=== PATIENT | female | born 1945 | race Caucasian/White ===

== ENCOUNTER 2017-04-22 03:31 | Inpatient (IN) | payer MEDICARE, OTHER ==
[2017-04-22] MEDS ORDERED: CRESTOR10 M1 PO (03:44)
[2017-04-22] MEDS ORDERED: ELIQUIS5 M1 PO (03:44)
[2017-04-22] MEDS ORDERED: HYDRALAZINE HCL25 M1 PO (03:44)
[2017-04-22] MEDS ORDERED: EFFEXOR XR75 M1 PO (03:45)
[2017-04-22] MEDS ORDERED: INDERAL XL80 MG PO (03:45)
[2017-04-22] MEDS ORDERED: AMIODARONE HCL200 M1 PO (03:56)
[2017-04-22 04:11] LABS: BASO % 0.2 % (0-2); EOS % 0.1 % (0-7); HGB-HEMOGLOBIN 7.3 gm/dl (12.0-15.5); IMMATURE GRANULOCYTES ABSOLUTE 0.04 tho/cmm (0-0.03); IMMATURE GRANULOCYTES PERCENT 0.4 % (0-0.3); LYMPH % 20.4 % (20-45); LYMPH ABSOLUTE COUNT 2.2 tho/cmm (0.8-4.5); MCH (MEAN CORPUSCULAR HGB) 31.7 pg (28.0-32.0); MCV (MEAN CELL VOLUME) 96.1 fl (82.0-96.0); MEAN PLATELET VOLUME 9.1 cmc (9.4-12.4); MONO % 8.1 % (0-12); MONOCYTE ABSOLUTE COUNT 0.9 tho/cmm (0.0-1.2); NEUTROPHIL ABSOLUTE COUNT 7.6 tho/cmm (1.6-8.0); NEUTROPHIL-AUTOMATED 7.6 tho/cmm (1.6-8.0); NEUTROPHILS % 70.8 % (40-80); PLATELET COUNT 173 tho/cmm (150-450); RED CELL DISTRIBUTION WIDTH 13.8 % (12.4-16.4); WHITE BLOOD COUNT 10.8 tho/cmm (4.0-10.0)
[2017-04-22 04:17] LABS: INR 1.5 INR (0.9-1.1); PROTHROMBIN TIME 18.2 SECONDS (9.0-13.6)
[2017-04-22 04:19] LABS: HCT-HEMATOCRIT 22.1 % (34.0-49.0)
[2017-04-22 04:32] LABS: ALBUMIN 2.9 g/dl (3.5-5.0); ALCOHOL (ETOH) <10 mg/dl (<10); ALKALINE PHOSPHATASE 54 U/L (33-138); ALT/SGPT 23 U/L (12-78); ANION GAP 17 mmol/L (0-20); AST/SGOT 17 U/L (10-40); BILIRUBIN,TOTAL 0.3 mg/dl (0-1.5); BLOOD UREA NITROGEN 62 mg/dl (6-24); CALCIUM 8.1 mg/dl (8.5-10.5); CARBON DIOXIDE-VENOUS 20 mmol/L (22-32); CHLORIDE 106 mmol/l (96-110); CREATININE 1.07 mg/dl (0.50-1.10); GLUCOSE 183 mg/dL (70-110); LIPASE 164 U/L (73-393); POTASSIUM 4.6 mmol/L (3.7-5.1); SODIUM 138 mmol/L (135-145); eGFR VALUE FOR BLACK 60 mL/Min
[2017-04-22 04:37] LABS: TSH-THYROID STIMULATING HORM. 4.83 uIU/ml (0.40-3.80)
[2017-04-22 04:43] LABS: PROCALCITONIN 0.08 ng/ml (0.05-0.09)
[2017-04-22 09:51] LABS: HGB-HEMOGLOBIN 9.2 gm/dl (12.0-15.5)
[2017-04-23 03:14] LABS: PARTIAL THROMBOPLASTIN TIME 24 SECONDS (22-36)
[2017-04-23 03:18] LABS: ANION GAP 10 mmol/L (0-20); BLOOD UREA NITROGEN 21 mg/dl (6-24); CALCIUM 7.5 mg/dl (8.5-10.5); CARBON DIOXIDE-VENOUS 23 mmol/L (22-32); CHLORIDE 115 mmol/l (96-110); CREATININE 0.56 mg/dl (0.50-1.10); GLUCOSE 110 mg/dL (70-110); SODIUM 145 mmol/L (135-145); eGFR VALUE FOR BLACK >90 mL/Min
[2017-04-23 03:33] LABS: POTASSIUM 3.3 mmol/L (3.7-5.1)
[2017-04-23 03:54] LABS: BASO % 0.2 % (0-2); EOS % 0.4 % (0-7); IMMATURE GRANULOCYTES ABSOLUTE 0.09 tho/cmm (0-0.03); IMMATURE GRANULOCYTES PERCENT 0.8 % (0-0.3); LYMPH % 23.1 % (20-45); LYMPH ABSOLUTE COUNT 2.5 tho/cmm (0.8-4.5); MCH (MEAN CORPUSCULAR HGB) 30.4 pg (28.0-32.0); MEAN PLATELET VOLUME 10.2 cmc (9.4-12.4); MONO % 12.9 % (0-12); MONOCYTE ABSOLUTE COUNT 1.4 tho/cmm (0.0-1.2); NEUTROPHIL ABSOLUTE COUNT 6.8 tho/cmm (1.6-8.0); NEUTROPHIL-AUTOMATED 6.8 tho/cmm (1.6-8.0); NEUTROPHILS % 62.6 % (40-80); PLATELET COUNT 120 tho/cmm (150-450); RED BLOOD COUNT 3.29 mil/cmm (4.00-5.20); WHITE BLOOD COUNT 10.8 tho/cmm (4.0-10.0)
[2017-04-23 03:55] LABS: HCT-HEMATOCRIT 28.7 % (34.0-49.0); MCHC MEAN CORPUSCULAR HGB CONC 34.8 % (32.0-36.0); MCV (MEAN CELL VOLUME) 87.2 fl (82.0-96.0); RED CELL DISTRIBUTION WIDTH 17.5 % (12.4-16.4)
[2017-04-23 04:31] LABS: INR 1.1 INR (0.9-1.1); PROTHROMBIN TIME 13.2 SECONDS (9.0-13.6)
[2017-04-23 09:29] LABS: HCT-HEMATOCRIT 29.2 % (34.0-49.0); HGB-HEMOGLOBIN 10.1 gm/dl (12.0-15.5); MCV (MEAN CELL VOLUME) 88.2 fl (82.0-96.0); RED CELL DISTRIBUTION WIDTH 17.4 % (12.4-16.4)
[2017-04-23 22:22] LABS: HCT-HEMATOCRIT 27.8 % (34.0-49.0); HGB-HEMOGLOBIN 9.6 gm/dl (12.0-15.5); MCV (MEAN CELL VOLUME) 87.7 fl (82.0-96.0); RED CELL DISTRIBUTION WIDTH 17.1 % (12.4-16.4)
[2017-04-24 06:20] LABS: BASO % 0.3 % (0-2); EOS % 1.4 % (0-7); EOSINOPHIL ABSOLUTE COUNT 0.1 tho/cmm (0.0-0.7); HCT-HEMATOCRIT 27.5 % (34.0-49.0); HGB-HEMOGLOBIN 9.5 gm/dl (12.0-15.5); IMMATURE GRANULOCYTES ABSOLUTE 0.09 tho/cmm (0-0.03); IMMATURE GRANULOCYTES PERCENT 0.9 % (0-0.3); LYMPH % 18.5 % (20-45); LYMPH ABSOLUTE COUNT 1.8 tho/cmm (0.8-4.5); MCH (MEAN CORPUSCULAR HGB) 30.4 pg (28.0-32.0); MCHC MEAN CORPUSCULAR HGB CONC 34.5 % (32.0-36.0); MCV (MEAN CELL VOLUME) 88.1 fl (82.0-96.0); MEAN PLATELET VOLUME 9.3 cmc (9.4-12.4); MONO % 14.5 % (0-12); MONOCYTE ABSOLUTE COUNT 1.4 tho/cmm (0.0-1.2); NEUTROPHIL ABSOLUTE COUNT 6.1 tho/cmm (1.6-8.0); NEUTROPHIL-AUTOMATED 6.1 tho/cmm (1.6-8.0); NEUTROPHILS % 64.4 % (40-80); PLATELET COUNT 138 tho/cmm (150-450); RED BLOOD COUNT 3.12 mil/cmm (4.00-5.20); RED CELL DISTRIBUTION WIDTH 17.2 % (12.4-16.4); WHITE BLOOD COUNT 9.5 tho/cmm (4.0-10.0)
[2017-04-24 06:30] LABS: ANION GAP 7 mmol/L (0-20); BLOOD UREA NITROGEN 12 mg/dl (6-24); CALCIUM 7.8 mg/dl (8.5-10.5); CARBON DIOXIDE-VENOUS 27 mmol/L (22-32); CHLORIDE 113 mmol/l (96-110); CREATININE 0.48 mg/dl (0.50-1.10); GLUCOSE 118 mg/dL (70-110); POTASSIUM 3.1 mmol/L (3.7-5.1); SODIUM 144 mmol/L (135-145); eGFR VALUE FOR BLACK >90 mL/Min
[2017-04-24 14:31] LABS: HCT-HEMATOCRIT 27.7 % (34.0-49.0); HGB-HEMOGLOBIN 9.4 gm/dl (12.0-15.5); MCV (MEAN CELL VOLUME) 89.1 fl (82.0-96.0); RED CELL DISTRIBUTION WIDTH 17.1 % (12.4-16.4)
--- NOTE | 2017-04-24 21:34 | NUR ---
CALLED [facility] TO VERIFY IF PO AMIODARONE SHOULD BE HELD WHILE PATIENT IS ON AMIODARONE GTT. DIRECTED TO HOLD TONIGHT'S DOSE AND CLARIFY IN THE MORNING WITH PROVIDER. WILL NOTIFY DAY SHIFT RN AND CONTINUE TO MONITOR.
[2017-04-24 22:10] LABS: HCT-HEMATOCRIT 28.3 % (34.0-49.0); HGB-HEMOGLOBIN 9.7 gm/dl (12.0-15.5); MCV (MEAN CELL VOLUME) 88.4 fl (82.0-96.0); RED CELL DISTRIBUTION WIDTH 16.6 % (12.4-16.4)
[2017-04-25 06:09] LABS: HCT-HEMATOCRIT 30.4 % (34.0-49.0); HGB-HEMOGLOBIN 10.3 gm/dl (12.0-15.5); MCV (MEAN CELL VOLUME) 89.4 fl (82.0-96.0); RED CELL DISTRIBUTION WIDTH 16.7 % (12.4-16.4)
[2017-04-25 09:18] LABS: ANION GAP 8 mmol/L (0-20); BLOOD UREA NITROGEN 7 mg/dl (6-24); CALCIUM 8.7 mg/dl (8.5-10.5); CARBON DIOXIDE-VENOUS 32 mmol/L (22-32); CHLORIDE 109 mmol/l (96-110); GLUCOSE 137 mg/dL (70-110); POTASSIUM 3.4 mmol/L (3.7-5.1); SODIUM 146 mmol/L (135-145); eGFR VALUE FOR BLACK >90 mL/Min
[2017-04-25] MEDS ORDERED: METOPROLOL TART25 M1 PO (13:15)
[2017-04-25] MEDS ORDERED: OMEPRAZOLE40 M2 PO (13:18)
== END 2017-04-25 14:30 | DRG 378 ==
LOC: EDMED 03:31 → EMR2 05:24 → CCU 06:15 → PCUB 04-23 17:45
PROVIDERS: Emergency Medicine; Internal Medicine Cardiovascular Disease; Internal Medicine Gastroenterology; Physician Assistant; ADMIT Internal Medicine
PROC: 0W3P8ZZ Control Bleeding in Gastrointestinal Tract, Via Natural or Artificial Opening Endoscopic (ICD-10-PCS; principal; 2017-04-22)
PROC: 3E0G8GC Introduction of Other Therapeutic Substance into Upper GI, Via Natural or Artificial Opening Endoscopic (ICD-10-PCS; 2017-04-22)
PROC: 0DB68ZX Excision of Stomach, Via Natural or Artificial Opening Endoscopic, Diagnostic (ICD-10-PCS; 2017-04-22)
PROC: 30233N1 Transfusion of Nonautologous Red Blood Cells into Peripheral Vein, Percutaneous Approach (ICD-10-PCS; 2017-04-22)
DX: K26.4 Chronic or unspecified duodenal ulcer with hemorrhage (principal); D62 Acute posthemorrhagic anemia; I48.91 Unspecified atrial fibrillation; I34.1 Nonrheumatic mitral (valve) prolapse; R55 Syncope and collapse; I10 Essential (primary) hypertension; E78.5 Hyperlipidemia, unspecified; F32.9 Major depressive disorder, single episode, unspecified; Z79.01 Long term (current) use of anticoagulants; W19.XXXA Unspecified fall, initial encounter; M19.90 Unspecified osteoarthritis, unspecified site; F41.9 Anxiety disorder, unspecified; Z96.653 Presence of artificial knee joint, bilateral; E87.6 Hypokalemia; J32.9 Chronic sinusitis, unspecified
CPT/HCPCS: C9113; G0480; J0171; J0282; J2405; J3480; J7030; P9016